=== PATIENT | male | born 1960 | race Hispanic/Latino ===

== ENCOUNTER 2018-02-19 08:59 | Day surgery (SDC) | payer BC ==
[2018-02-18 11:07] VITALS: BMI 30.1
[2018-02-19] MEDS ORDERED: Propofol 10 mg/ml Inj (20 ML) ONE (12:01)
[2018-02-19] MEDS ORDERED: Lidocaine Hydrochloride 5 ML INJ ONE (12:41)
[2018-02-19] MEDS ORDERED: Midazolam 2 MG/2 ML VIAL ONE (12:41)
[2018-02-19 13:26] VITALS: TEMP 97.3
[2018-02-19] MEDS ORDERED: Lactated Ringer's 500 ML IV SCH (13:30)
[2018-02-19 14:34] VITALS: RESP 18; O2SAT 97
[2018-02-19 14:35] VITALS: BP 129/84; PULSE 79
== END 2018-02-19 14:20 | disposition home or self-care (01) ==
LOC: C.ENDO 08:59
PROVIDERS: ATTEND Internal Medicine Gastroenterology
DX: Z12.11 Encounter for screening for malignant neoplasm of colon (principal); D12.5 Benign neoplasm of sigmoid colon; K63.5 Polyp of colon; K64.1 Second degree hemorrhoids; K31.7 Polyp of stomach and duodenum; K29.50 Unspecified chronic gastritis without bleeding; K44.9 Diaphragmatic hernia without obstruction or gangrene; K21.0 Gastro-esophageal reflux disease with esophagitis; G20 Parkinson's disease
CPT/HCPCS: 43239; 43251; 45380; 45385; 88305; 88312; 88313; 88342; J2250; J2704; J3010; J7120